=== PATIENT | male | born 1990 ===

== ENCOUNTER 2024-02-06 21:11 | Emergency (ER) | payer OTHER, MEDICAID ==
[~2024-02-06] VITALS: Ht 188 cm; Wt 95.0 kg
[2024-02-06] MEDS: LIDOcaine 1% W/epiNEPHrine 1:100,000 20ml vial SQ ONE (22:09)
[2024-02-06] MEDS: CefTRIAXone 250MG IM Kit w/LIDOcaine IM ONE (22:43)
[2024-02-06 23:02] VITALS: BP 122/78; PULSE 99; RESP 16; TEMP 98.2; O2SAT 98
[2024-02-06] MEDS ORDERED: SULF1TAB49 PO (23:17)
[2024-02-06] MEDS ORDERED: DOXY-460 PO (23:17)
== END 2024-02-06 23:23 | disposition home or self-care (01) ==
LOC: ER 21:13
DX: L02.413 Cutaneous abscess of right upper limb (principal); L03.113 Cellulitis of right upper limb; Z88.0 Allergy status to penicillin
CPT/HCPCS: 96372; 99283; J0696; A6449